=== PATIENT | female | born 1985 | race Caucasian/White ===

== ENCOUNTER → 2016-10-30 | Day surgery (SDC) | payer OTHER ==
[2016-10-30 11:22] LABS: HCT 47.5 % (37.0-47.0); HGB 16.1 g/dl (12.5-16.0); MCH 30.1 pg (25.0-31.0); MCHC 33.9 g/dL (32.0-36.0); MPV 11.2 fL (6.0-9.5); RBC 5.34 M/uL (4.20-5.40); RDW 12.6 % (11.5-14.0); WBC 10.6 K/uL (4.0-10.5)
[2016-10-30 11:54] LABS: INR 0.92 (0.9-1.2)
[2016-10-30 11:55] LABS: PTT 29.4 SECONDS (23.2-31.4)
[2016-10-30 12:03] LABS: ALBUMIN 4.3 g/dL (3.5-5.0); BILIRUBIN - TOTAL 0.5 mg/dL (0.1-1.0); CREATININE 0.8 mg/dL (0.5-1.0); GLOBULIN (CALCULATION) 3.3 g/dL (2.2-4.2); POTASSIUM 3.9 mmol/L (3.5-5.1); TOTAL PROTEIN 7.6 g/dL (6.4-8.3)
[2016-10-30 12:23] LABS: TSH (THYROID STIM HORMONE) 0.835 uIU/mL (0.270-4.200); VITAMIN D (25-OH) 13.51 ng/mL (20.0-)
[2016-10-30 13:56] LABS: FOLIC ACID (SERUM) > 20.0 ng/mL (4.4-31.0)
== END | disposition home or self-care (01) ==
LOC: FAS 09:15
PROVIDERS: Surgery
DX: K29.50 Unspecified chronic gastritis without bleeding (principal); E66.01 Morbid (severe) obesity due to excess calories; Z68.43 Body mass index [BMI] 50.0-59.9, adult; K21.9 Gastro-esophageal reflux disease without esophagitis; I10 Essential (primary) hypertension; Z87.891 Personal history of nicotine dependence; Z82.49 Family history of ischemic heart disease and other diseases of the circulatory system; Z83.49 Family history of other endocrine, nutritional and metabolic diseases; Z83.3 Family history of diabetes mellitus; Z79.899 Other long term (current) drug therapy; Z98.890 Other specified postprocedural states
CPT/HCPCS: 36415; 80053; 80061; 82306; 82607; 82728; 82746; 83036; 83540; 83550; 84425; 84443; 84703; 85610; 85730; 88305; G0480; J2704